=== PATIENT | male | born 2000 | race Two or more races ===

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

== ENCOUNTER 2020-03-20 08:58 | Emergency (ER) | payer OTHER ==
[~2020-03-20] VITALS: Ht 177.8 cm; Wt 113.4 kg
[2020-03-20 09:08] VITALS: BP 139/85
== END 2020-03-20 09:39 | disposition home or self-care (01) ==
LOC: ER 08:58
DX: J02.9 Acute pharyngitis, unspecified (principal); F41.9 Anxiety disorder, unspecified; F12.10 Cannabis abuse, uncomplicated
CPT/HCPCS: 71045